=== PATIENT | female | born 1985 | race Caucasian/White ===

== ENCOUNTER → 2016-06-23 | Outpatient (CLI) | payer OTHER ==
--- NOTE | 2016-06-24 07:42 | US ---
EXAMINATION TYPE: US pelvic complete DATE OF EXAM: 06/23/2016 4:11 PM COMPARISON: 05/08/17 CLINICAL HISTORY: N83.20 Prev Rt Ovarian Cyst. TECHNIQUE: TA, patient did not want TV approach today Date of LMP: 06/15/2016 EXAM MEASUREMENTS: Uterus: 9.3 x 5.5 x 3.9cm Endometrial Stripe: 0.4cm Right Ovary: 3.5 x 2.7 x 1.8cm Left Ovary: 2.2 x 2.1 x 1.7cm Findings: 1. Uterus: wnl 2. Endometrium: wnl 3. Right Ovary: 1.2cm follicle seen 4. Left Ovary: wnl 5. Bilateral Adnexa: wnl 6. Posterior cul-de-sac: wnl IMPRESSION: 1. No acute process. No sizable ovarian cyst is seen on the right.
== END | disposition home or self-care (01) ==
LOC: RADUSWWP 16:01
PROVIDERS: ATTEND Obstetrics & Gynecology
DX: N83.201 Unspecified ovarian cyst, right side (principal)
CPT/HCPCS: 76856

== ENCOUNTER 2018-01-19 11:16 | Outpatient (CLI) | payer OTHER ==
[2018-01-19 12:01] VITALS: BP 119/76; PULSE 83; RESP 16; TEMP 97.5
--- NOTE | 2018-01-22 07:56 | P.MSEPDOC ---
Presenting Problems - Arrival Data Date of Arrival on Unit: 01/19/18 Time of Arrival on Unit: 11:16 Mode of Transport: Ambulatory Vital Signs - Temperature Temperature: 97.5 F Temperature Source: Temporal Artery Scan - Pulse Brachial Pulse Rate: 83 Pulse Assessment Method: Automatic Cuff - Respirations Respiratory Rate: 16 Oxygen Delivery Method: Room Air - Blood Pressure Right Arm Sitting Blood Pressure: 119/76 Blood Pressure Mean: 90 Blood Pressure Source: Automatic Cuff Medical Screen Scoring (Post) - Cervical Exam Dilation: Exam Deferred Effacement: Exam Deferred Membranes: Intact - Uterine Contractions Frequency: N/A Duration: N/A Intensity: N/A - Maternal Vital Signs Maternal Temperature: N/A Signs of Preeclampsia: N/A Maternal Respirations: N/A - Pain Assessment Pain Intensity: 0 - Assessment Heart Rate: 145 Heart Rate - NICHD Category: Category I (Normal) = 0 NST: Reactive Position: N/A Station: N/A - Total Score Total Score (Post): 0 - Post Treatment Level of Risk Post Treatment Level of Risk: Low (0-5) Physician Notification (Post) - Physician Notified Physician Notified Date: 01/19/18 Physician Notified Time: 11:55 Spoke With: Dr Sauer New Order Received: Yes - Notification Comment Comment: pt arrived with c/o decreased movement and swelling. pt has a reactive NST and feeling lots of movement while here. no swelling noted by RN. pt dc'd home and will f/u in office on 01/29/[address] Sauer Disposition - Disposition OB Disposition: Triage, Discharge to home, Written follow up instructions reviewed Discharge Date: 01/19/18 Discharge Time: 12:00 I agree with the RN Medical Screening Exam: Yes Risk & Benefit of care provided described in d/c instruction: Yes Diagnosis: DECREASED MOVEMENTS, THIRD TRIMESTER, FETUS 1
== END 2018-01-19 12:00 | disposition home or self-care (01) ==
LOC: FBPOP 11:16
PROVIDERS: ATTEND Obstetrics & Gynecology
DX: O36.8130 Decreased fetal movements, third trimester, not applicable or unspecified (principal); Z3A.00 Weeks of gestation of pregnancy not specified
CPT/HCPCS: 59025; 99213

== ENCOUNTER 2018-02-10 10:30 | Outpatient (CLI) | payer OTHER ==
[2018-02-10 11:15] VITALS: BP 123/82; PULSE 100; RESP 16; TEMP 98
--- NOTE | 2018-02-10 12:59 | P.MSEPDOC ---
Presenting Problems - Arrival Data Date of Arrival on Unit: 02/10/18 Time of Arrival on Unit: 10:30 Mode of Transport: Ambulatory - Complaint OB-Reason for Admission/Chief Complaint: Rule Out PROM Comment: 02/10/18 2200-"woke up damp", continues to feel "damp" today Medical History - Information : 3 Para: 2 Term: 2 : 0 Abortions: Spontaneous or Elective: 0 Number of Living Children: 2 - Gestational Age Gestational Age by PABLO (wks/days): 35 Weeks and 5 Days Review of Systems - Review of Systems Constitutional: No problems Breast: No problems ENT: No problems Cardiovascular: No problems Respiratory: No problems Gastrointestinal: No problems Genitourinary: No problems Musculoskeletal: No problems Neurological: No problems Skin: No problems Vital Signs - Temperature Temperature: 98 F Temperature Source: Oral - Pulse Right Sitting Brachial Pulse Rate: 100 Pulse Assessment Method: Automatic Cuff - Respirations Respiratory Rate: 16 Oxygen Delivery Method: Room Air - Blood Pressure Right Arm Sitting Blood Pressure: 123/82 Blood Pressure Mean: 95 Blood Pressure Source: Automatic Cuff Medical Screen Scoring (Pre) - Cervical Exam Dilation: Exam Deferred Effacement: Exam Deferred Membranes: Intact - Uterine Contractions Frequency: N/A Duration: N/A Intensity: N/A - Maternal Vital Signs Maternal Temperature: N/A Maternal Blood Pressure: N/A Signs of Preeclampsia: N/A Maternal Respirations: N/A - Maternal Trauma Maternal Trauma: N/A - Assessment Baseline FHR: 145 Heart Rate - NICHD Category: Category I (Normal) = 0 NST: Reactive Position: N/A Station: N/A - Total Score Total Score (Pre): 0 - Level of Risk Level of Risk: Low (0-5) Physician Notification (Pre) - Physician Notified Physician Notified Date: 02/10/18 Physician Notified Time: 10:50 Physician/Practitioner Notifed:: Cristiane Spoke With: Cristiane New Order Received: Yes - Notification Comment Comment: , 35 5/, amnisure negative, reactive NST, repeat c/s scheduled 03/05/18. Pt has appt tomorrow 02/11 @ 0845. Pt to be discharged home, follow up tomorrow as scheduled. Disposition - Disposition OB Disposition: Discharge to home, Written follow up instructions reviewed Discharge Date: 02/10/18 Discharge Time: 11:08 I agree with the RN Medical Screening Exam: Yes Risk & Benefit of care provided described in d/c instruction: Yes Diagnosis: FALSE LABOR AT OR AFTER 37 COMPLETED WEEKS OF GESTATION
== END 2018-02-10 11:08 | disposition home or self-care (01) ==
LOC: FBPOP 10:30
PROVIDERS: ATTEND Obstetrics & Gynecology
DX: O47.1 False labor at or after 37 completed weeks of gestation (principal); Z3A.35 35 weeks gestation of pregnancy
CPT/HCPCS: 59025; 84112; 99213

== ENCOUNTER 2018-02-22 08:14 | Outpatient (CLI) | payer OTHER ==
[2018-02-22 08:57] VITALS: BP 124/80; PULSE 99; RESP 16; TEMP 98.4
--- NOTE | 2018-02-22 12:49 | P.MSEPDOC ---
Presenting Problems - Arrival Data Date of Arrival on Unit: 02/22/18 Time of Arrival on Unit: 08:30 Mode of Transport: Ambulatory - Complaint OB-Reason for Admission/Chief Complaint: Possible Onset of Labor, Scheduled C- Section Medical History - Information : 3 Para: 2 Term: 1 : 1 Abortions: Spontaneous or Elective: 0 Number of Living Children: 0 - Gestational Age Gestational Age by PABLO (wks/days): 37 Weeks and 3 Days Review of Systems - Review of Systems Constitutional: No problems Breast: No problems ENT: No problems Cardiovascular: No problems Respiratory: No problems Gastrointestinal: No problems Genitourinary: No problems Musculoskeletal: No problems Neurological: No problems Skin: No problems Vital Signs - Temperature Temperature: 98.4 F Temperature Source: Temporal Artery Scan - Pulse Right Apical Pulse Rate: 99 Pulse Assessment Method: Automatic Cuff - Respirations Respiratory Rate: 16 Oxygen Delivery Method: Room Air O2 Sat by Pulse Oximetry: 98 - Blood Pressure Right Arm Blood Pressure: 124/80 Blood Pressure Mean: 94 Blood Pressure Source: Automatic Cuff Medical Screen Scoring (Pre) - Cervical Exam Dilation: 0 cm = 0 Effacement: Exam Deferred Membranes: Intact - Uterine Contractions Frequency: > 5 minutes apart = 1 Duration: N/A Intensity: N/A - Maternal Vital Signs Maternal Temperature: N/A Maternal Blood Pressure: N/A Signs of Preeclampsia: N/A Maternal Respirations: N/A - Pain Assessment Pain Scale Used: Numeric (1 - 10) Pain Intensity: 5 Pain Description: Cramping Pain Frequency: Intermittent Pain Aggravating Factors: Contractions, Position - Maternal Trauma Maternal Trauma: N/A - Assessment Heart Rate - NICHD Category: Category I (Normal) = 0 NST: Reactive Position: N/A Station: N/A - Total Score Total Score (Pre): 1 Physician Notification (Pre) - Physician Notified Physician Notified Date: 02/22/18 Physician Notified Time: 08:35 Physician/Practitioner Notifed:: cary Spoke With: cary New Order Received: Yes - Notification Comment Comment: assess in triage. vaginal exam and nst. may discharge home. 929. to see dr in office on thursday. return to triage if need/or conserns. Disposition - Disposition OB Disposition: Discharge to home, Written follow up instructions reviewed Discharge Date: 02/22/18 Discharge Time: 09:35 I agree with the RN Medical Screening Exam: Yes Risk & Benefit of care provided described in d/c instruction: Yes Diagnosis: FALSE LABOR AT OR AFTER 37 COMPLETED WEEKS OF GESTATION
== END 2018-02-22 09:35 | disposition home or self-care (01) ==
LOC: FBPOP 08:14
PROVIDERS: ATTEND Obstetrics & Gynecology
DX: O47.1 False labor at or after 37 completed weeks of gestation (principal); Z3A.37 37 weeks gestation of pregnancy
CPT/HCPCS: 59025; 99213

== ENCOUNTER 2018-02-24 08:40 | Inpatient (IN) | payer OTHER ==
[2018-02-24] MEDS ORDERED: CITRIC ACID-SODIUM CITRATE 15 ML CUP PO ONE (08:58)
[2018-02-24] MEDS ORDERED: LACTATED RINGERS 1,000 ML IV ONE (08:58)
[2018-02-24 09:41] LABS: Anisocytosis Slight; Basophils # (A) 0.1 k/uL (0-0.2); Basophils % (A) 1 %; Eosinophils # (A) 0.1 k/uL (0-0.7); Eosinophils % (A) 1 %; HCT 27.6 % (34.0-46.0); HGB 8.6 gm/dL (11.4-16.0); Hypochromasia Marked; Lymphocytes # (A) 1.7 k/uL (1.0-4.8); Lymphocytes % (A) 19 %; MCH 21.4 pg (25.0-35.0); MCV 68.9 fL (80.0-100.0); Mean Platelet Volume 11.8; Microcytosis Marked; Monocytes # (A) 0.5 k/uL (0-1.0); Monocytes % (A) 5 %; Neutrophils # (A) 6.6 k/uL (1.3-7.7); Neutrophils % (A) 73 %; Platelet Count 131 k/uL (150-450); Poikilocytosis Slight; RBC 4.01 m/uL (3.80-5.40); RDW 16.7 % (11.5-15.5); WBC 9.1 k/uL (3.8-10.6)
[2018-02-24 09:45] VITALS: BMI 25.2
[2018-02-24 10:02] LABS: Large Platelets Present; Polychromasia Present
[2018-02-24] MEDS: LACTATED RINGERS 1,000 ML IV SCH ×4 (11:44→23:38)
[2018-02-24] MEDS ORDERED: ceFAZolin IN SWFI 2 GM/20 ML SYRINGE IVP ONE (11:45)
--- NOTE | 2018-02-24 12:03 | P.HPOB ---
History of Present Illness H&P Date: 02/24/18 Chief Complaint: Previous section and labor This patient is a pleasant 32-year-old 3 para 2 female estimated date of confinement 03/12/2014 estimated gestational age 37-5/7 weeks' has been having contractions on and off for approximately 3-4 days. Patient was here on Thursday and was not dilated. She had strong contractions all night long and cervix is now 1 cm dilated and she is felt to be in active labor. Patient's had 2 previous sections. Patient request repeat section and also desires permanent sterilization. Patient's care otherwise has been uncomplicated. Review of Systems Constitutional: Denies chills, Denies fever Gastrointestinal: Reports heartburn Genitourinary: Reports , Denies dysuria, Denies hematuria Menstruation: Reports amenorrhea Past Medical History Past Medical History: No Reported History Additional Past Medical History / Comment(s): kidney stones History of Any Multi-Drug Resistant Organisms: None Reported Past Surgical History: Section Additional Past Surgical History / Comment(s): c/s x2 Past Anesthesia/Blood Transfusion Reactions: No Reported Reaction, Postoperative Nausea & Vomiting (PONV) Past Psychological History: No Psychological Hx Reported Smoking Status: Never smoker Past Alcohol Use History: None Reported Past Drug Use History: None Reported - Past Family History Mother Family Medical History: Cancer Medications and Allergies Home Medications Medication Instructions Recorded Confirmed Type Pnv No.95/Ferrous Fum/Folic AC 1 tab PO DAILY 01/19/18 02/24/18 History [ Multivitamin Tablet] Allergies Allergy/AdvReac Type Severity Reaction Status Date / Time No Known Allergies Allergy Verified 02/24/18 09:11 Exam Vital Signs Temp Pulse Resp BP Pulse Ox 02/24/18 09:09 98.7 F 89 16 136/82 99 Intake and Output 02/23/18 02/24/18 02/24/18 22:59 06:59 14:59 Other: Weight 75.296 kg - OBG Physical Exam Abdomen: bowel sounds normal, no diffuse tenderness, no bruit present, no guarding noted, no hepatomegaly, no splenomegaly, no mass Vulva: both: normal Vagina: normal moisture, no discharge Cervix: no lesion (Cervix is 1 cm dilated 50% effaced -2 station), no discharge Uterus: enlarged (Fundal height is consistent with a term ) Results blood work shows she is O positive, rubella immune, RPR is nonreactive , hepatitis B is negative, HIV is nonreactive, ultrasounds have been normal, Glucola was abnormal with a normal three-hour gtt., group B strep was negative. Result Diagrams: 02/24/18 09:31 Abnormal Lab Results - Last 24 Hours (Table) 02/24/18 Range/Units 09:31 Hgb 8.6 L (11.4-16.0) gm/dL Hct 27.6 L (34.0-46.0) % MCV 68.9 L (80.0-100.0) fL MCH 21.4 L (25.0-35.0) pg RDW 16.7 H (11.5-15.5) % Plt Count 131 L (150-450) k/uL Assessment and Plan Assessment: This is a pleasant 32-year-old 3 para 2 female 37-5/7 weeks' gestation with previous section 2 and early labor. Plan is repeat section and also requesting permanent sterilization. Patient I have discussed the surgery in detail including the risks of infection, bleeding, possible bowel , bladder, vessels, and other organs. All the patient's questions have been answered and a written consent is obtained. Patient does understand a tubal ligation is permanent, however there is a failure rate of approximately 5 or less per thousand procedures done. (1) Third trimester Current Visit: Yes Status: Acute Code(s): Z34.93 - ENCNTR FOR SUPRVSN OF NORMAL PREG, UNSP, THIRD TRIMESTER SNOMED Code(s): 71113152 (2) Normal labor Current Visit: Yes Status: Acute Code(s): O80 - ENCOUNTER FOR FULL-TERM UNCOMPLICATED DELIVERY; Z37.9 - OUTCOME OF DELIVERY, UNSPECIFIED SNOMED Code(s ): 03821068 (3) Previous delivery affecting Current Visit: Yes Status: Acute Code(s): O34.219 - MATERNAL CARE FOR UNSP TYPE SCAR FROM PREVIOUS DEL SNOMED Code(s): 774194879 (4) Family planning Current Visit: Yes Status: Acute Code(s): Z30.09 - ENCOUNTER FOR OTH GENERAL CNSL AND ADVICE ON CONTRACEPTION SNOMED Code(s): 336117647
[2018-02-24] MEDS ORDERED: OXYTOCIN 10 UNIT/ML 1 ML VIAL ONE (12:15)
[2018-02-24] MEDS ORDERED: ONDANSETRON 4 MG/2 ML VIAL ONE (12:15)
[2018-02-24] MEDS ORDERED: ePHEDrine SULFATE/0.9% NACL/PF 50 MG/5 ML SYRINGE IV ONE (12:15)
[2018-02-24] MEDS ORDERED: DEXAMETHASONE SOD PHOS (MDV) 100 MG/10 ML VIAL ONE (12:15)
[2018-02-24] MEDS ORDERED: MORPHINE SULFATE (PF) 0.3 MG/0.3 ML SYR ONE (12:15)
[2018-02-24] MEDS ORDERED: HYDROmorphone 1 MG/ML 1 ML SYRINGE IVP PRN (12:56)
[2018-02-24] MEDS ORDERED: NALBUPHINE 10 MG/ML VIAL (10ML MDV) IV PRN (12:56)
[2018-02-24] MEDS ORDERED: ONDANSETRON 4 MG/2 ML VIAL IVP PRN ×2 (12:56→12:58)
[2018-02-24] MEDS ORDERED: diphenhydrAMINE 50 MG/ML 1 ML VIAL IVP PRN (12:56)
[2018-02-24] MEDS ORDERED: NALOXONE 0.4 MG/ML 1 ML VIAL IV PRN ×2 (12:56→12:58)
[2018-02-24] MEDS ORDERED: SIMETHICONE 80 MG CHEWABLE PO PRN (12:58)
[2018-02-24] MEDS ORDERED: diphenhydrAMINE 25 MG CAP PO PRN (12:58)
[2018-02-24] MEDS ORDERED: ZOLPIDEM 5 MG TAB PO PRN (12:58)
[2018-02-24] MEDS ORDERED: METOCLOPRAMIDE 5 MG/ML 2 ML VIAL IVP PRN (12:58)
[2018-02-24] MEDS ORDERED: OXYTOCIN 20 UNITS/1000 ML NS 1,000 ML IV SCH (13:00)
--- NOTE | 2018-02-24 13:09 | P.OP ---
Date of Procedure: 02/24/18 Preoperative Diagnosis: #1: 37-5/7 weeks . #2: Early labor #3: Previous section 2. #4: Multi parity desires permanent sterilization Postoperative Diagnosis: Same Procedure(s) Performed: Repeat low transverse section and bilateral partial salpingectomy Anesthesia: spinal Surgeon: Chito Sauer Residential Advisor #1: Moraima Galan Estimated Blood Loss (ml): 600 Pathology: other (Bilateral fallopian tube segments) Condition: stable Disposition: floor Indications for Procedure: Please see dictated H&P for intimate details of this patient's admission. Brief summary this pleasant 32-year-old 3 para 2 female 37-5/7 weeks' gestation is been having contractions strong all night long presented to my office since has cervical change consistent with labor. Patient is a previous section 2 request repeat and also permanent sterilization. All the patient's questions been answered and a written consent is obtained. Operative Findings: This is a vigorous viable male Apgars 8 and 9 delivery time is 1234 hrs. Nuchal cord 1 which was loose. Patient normal uterus tubes and ovaries Description of Procedure: This patient has a Sanchez catheter placed to straight drain. She is subsequently taken to the operating room where she sat up and spinal anesthetic is administered without incident. With an adequate level of anesthesia she has abdominal prep and drape. Scalpels then taken. Patient is 2 previous Pfannenstiel incisions and I make an incision in the upper incision. A second scalpel is taken down the fascia the fascia scored with a knife. Fascial incision extended bilaterally using the Landa scissors. Fascia is then dissected sharply off the rectus muscles. Peritoneum was entered sharply at that time. Peritoneal incision extended superior and inferior without difficulty. Bladder blade is then placed. Bladder peritoneum was taken sharply off the lower uterine segment. Scalpels taken low transverse uterine incision is then made. Using a hemostat I into the uterine cavity bluntly and there is loss of clear fluid. This incision is then extended bluntly. ' s head is then guided through the incision with fundal pressure delivered. Mouth and nares are bulb suctioned. There is a loose nuchal cord which is reduced. We then have deliver the anterior and posterior shoulder and rest this infant's body. This is a vigorous viable male Apgars are 8 and 9 delivery time was 1234 hrs. After delivery of the infant the umbilical cord is doubly clamped and cut. is handed off to the nurses in attendance. Cord blood is obtained. Placenta is then manually extracted intact. Uterus is then externalized and the uterine incision demarcated with Hansen clamps. Uterine incision closed in a running locked fashion of 0 Vicryl suture. Excellent hemostasis is noted. Then turned my attention to the fallopian tubes and the left fallopian tube was identified and approximately 4 cm from its cornual insertion a small window made to the mesial salpinx with Bovie cautery. Using a 2-0 silk suture I doubly ligate a 2 cm segment of fallopian tube this is then excised and the tubal ostia are cauterized. Similarly on the right side the right fallopian tube is transected and ligated. This completed excess fluid is removed from the abdomen and pelvis. Uterus placed back into the abdomen. The peritoneum was then identified and closed using 0 Vicryl running fashion. Rectus muscles are reapproximated in 0 Vicryl interrupted fashion. The fascia is then closed using a 0 PDS. Fascial incision is intact and hemostatic. Subcutaneous tissue is then reapproximated using a 3-0 Vicryl. Skin is and closed using carmelo. Sterile dressing is applied. All counts correct 3. There are no complications. and mother taken to the birthing suite in satisfactory condition.
[2018-02-24] MEDS: KETOROLAC 30 MG/ML 1 ML VIAL IVP PRN ×2 (16:48→23:37)
[2018-02-24] MEDS: SENNOSIDES-DOCUSATE SODIUM 1 EACH TAB PO SCH (21:43)
[2018-02-25] MEDS: LACTATED RINGERS 1,000 ML IV SCH ×5 (01:38→21:10)
--- NOTE | 2018-02-25 06:10 | P.PNOBGPC ---
Subjective - Subjective Patient reports: Reports appetite normal, Reports voiding normally, Reports pain well controlled, Reports ambulating normally : doing well Objective - Vital Signs Latest vital signs: Vital Signs Temp Pulse Resp BP Pulse Ox 02/25/18 04:00 97.9 F 64 17 119/69 100 02/25/18 02:42 17 02/25/18 00:00 98.2 F 82 18 125/74 100 02/24/18 20:30 98.0 F 68 17 129/75 97 02/24/18 18:44 18 02/24/18 17:00 18 02/24/18 16:00 97.7 F 71 18 139/68 98 02/24/18 15:56 18 02/24/18 15:15 97.6 F 73 16 118/62 98 02/24/18 14:45 83 16 121/63 98 02/24/18 14:15 71 16 124/70 02/24/18 13:55 74 16 110/71 98 02/24/18 13:53 16 02/24/18 13:45 76 16 114/63 98 02/24/18 13:26 78 16 113/58 99 02/24/18 13:15 98.2 F 78 16 112/54 99 02/24/18 12:56 18 99 02/24/18 09:09 98.7 F 89 16 136/82 99 Intake and Output 02/24/18 02/24/18 02/25/18 14:59 22:59 06:59 Intake Total 2000 Output Total 950 900 300 Balance 1050 -900 -300 Intake: IV 2000 Output: Urine 350 900 300 Uretheral (Sanchez) 300 Emesis 0 Estimated Blood Loss 600 Other: # Emeses 1 Weight 75.296 kg - Exam Lungs: bilateral: normal Chest: Normal S1, Normal S2 Extremities: Present: normal Abdomen: Present: normal appearance, soft. Absent: distention, tenderness Incision: Present: normal, dry, intact Uterus: Present: normal, firm - Labs Labs: Abnormal Lab Results - Last 24 Hours (Table) 02/24/18 Range/Units 09:31 Hgb 8.6 L (11.4-16.0) gm/dL Hct 27.6 L (34.0-46.0) % MCV 68.9 L (80.0-100.0) fL MCH 21.4 L (25.0-35.0) pg RDW 16.7 H (11.5-15.5) % Plt Count 131 L (150-450) k/uL Assessment and Plan Assessment: Post operative day #1. Patient is resting without complaints. Vital signs are stable she is afebrile. Her incision is intact and dry. Patient still having some nausea and therefore hasn't taken much oral intake. Plan today is to advance her diet, encourage ambulation, allow the patient to shower, check a CBC. (1) Third trimester Current Visit: Yes Status: Acute Code(s): Z34.93 - ENCNTR FOR SUPRVSN OF NORMAL PREG, UNSP, THIRD TRIMESTER SNOMED Code(s): 15900532 (2) Normal labor Current Visit: Yes Status: Acute Code(s): O80 - ENCOUNTER FOR FULL-TERM UNCOMPLICATED DELIVERY; Z37.9 - OUTCOME OF DELIVERY, UNSPECIFIED SNOMED Code(s ): 61299724 (3) Previous delivery affecting Current Visit: Yes Status: Acute Code(s): O34.219 - MATERNAL CARE FOR UNSP TYPE SCAR FROM PREVIOUS DEL SNOMED Code(s): 084026890 (4) Family planning Current Visit: Yes Status: Acute Code(s): Z30.09 - ENCOUNTER FOR OTH GENERAL CNSL AND ADVICE ON CONTRACEPTION SNOMED Code(s): 703982792
[2018-02-25 07:41] LABS: Anisocytosis Slight; Basophils % (A) 0 %; Eosinophils % (A) 0 %; HCT 26.7 % (34.0-46.0); HGB 8.1 gm/dL (11.4-16.0); Hypochromasia Marked; Lymphocytes # (A) 1.4 k/uL (1.0-4.8); Lymphocytes % (A) 9 %; MCH 21.7 pg (25.0-35.0); MCHC 30.5 g/dL (31.0-37.0); Mean Platelet Volume 10.9; Microcytosis Moderate; Monocytes # (A) 0.9 k/uL (0-1.0); Monocytes % (A) 5 %; Neutrophils # (A) 13.3 k/uL (1.3-7.7); Neutrophils % (A) 85 %; Platelet Count 128 k/uL (150-450); Poikilocytosis Slight; RBC 3.76 m/uL (3.80-5.40); RDW 16.6 % (11.5-15.5); WBC 15.7 k/uL (3.8-10.6)
[2018-02-25 09:20] LABS: Polychromasia Present
[2018-02-25] MEDS: SENNOSIDES-DOCUSATE SODIUM 1 EACH TAB PO SCH ×2 (09:38→20:25)
[2018-02-25] MEDS: KETOROLAC 30 MG/ML 1 ML VIAL IVP PRN ×2 (09:39→17:28)
--- NOTE | 2018-02-25 17:04 | P.PN ---
Progress Note - Text Progress Note Date: 02/25/18 Postoperative day 1 status post section under spinal anesthesia, and intrathecal morphine given for postoperative analgesia, patient doing well, there is no anesthesia related complications, Patient had no headache, vital signs stable , Assessment and plan= postop day 1 status post , doing well there is no anesthesia related complication.
[2018-02-25] MEDS: ACETAMINOPHEN TAB 325 MG TAB PO PRN (20:25)
[2018-02-25] MEDS ORDERED: Acetaminophen-Codeine 300-30mg TAB PO PRN (21:07)
[2018-02-26] MEDS: IBUPROFEN 600 MG TAB PO PRN ×4 (00:42→19:40)
[2018-02-26] MEDS: ACETAMINOPHEN TAB 325 MG TAB PO PRN ×4 (03:41→22:01)
[2018-02-26] MEDS: LACTATED RINGERS 1,000 ML IV SCH ×2 (05:12→05:14)
--- NOTE | 2018-02-26 05:54 | P.PNOBGPC ---
Subjective - Subjective Patient reports: Reports appetite normal, Reports voiding normally, Reports pain well controlled, Reports ambulating normally : doing well Objective - Vital Signs Latest vital signs: Vital Signs Temp Pulse Resp BP Pulse Ox 02/26/18 00:00 98.4 F 75 50 H 109/61 02/25/18 16:00 98.4 F 60 18 104/50 99 02/25/18 12:00 98.2 F 77 18 126/67 100 02/25/18 08:00 98.0 F 68 18 129/69 100 Intake and Output 02/25/18 02/25/18 02/26/18 14:59 22:59 06:59 Output Total 800 Balance -800 Output: Urine 800 Other: # Voids 1 - Exam Lungs: bilateral: normal Chest: Normal S1, Normal S2 Extremities: Present: normal Abdomen: Present: normal appearance, soft. Absent: distention, tenderness Incision: Present: normal, dry, intact Uterus: Present: normal, firm - Labs Labs: Abnormal Lab Results - Last 24 Hours (Table) 02/25/18 Range/Units 07:00 WBC 15.7 H (3.8-10.6) k/uL RBC 3.76 L (3.80-5.40) m/uL Hgb 8.1 L (11.4-16.0) gm/dL Hct 26.7 L (34.0-46.0) % MCV 71.0 L (80.0-100.0) fL MCH 21.7 L (25.0-35.0) pg MCHC 30.5 L (31.0-37.0) g/dL RDW 16.6 H (11.5-15.5) % Plt Count 128 L (150-450) k/uL Neutrophils # 13.3 H (1.3-7.7) k/uL Assessment and Plan Assessment: Post operative day #2. She is resting without new complaints. Vital signs are stable she is afebrile. Uterus is firm nontender and her incision is intact and dry. Patient's preoperative hemoglobin was 8.6 and yesterday was 8.1 which is consistent with chronic anemia. I am going to start her on some iron now that she's tolerating regular diet. My impression this is a normal course. Plan is to continue postoperative care discharge home tomorrow. (1) Third trimester Current Visit: Yes Status: Acute Code(s): Z34.93 - ENCNTR FOR SUPRVSN OF NORMAL PREG, UNSP, THIRD TRIMESTER SNOMED Code(s): 67799272 (2) Normal labor Current Visit: Yes Status: Acute Code(s): O80 - ENCOUNTER FOR FULL-TERM UNCOMPLICATED DELIVERY; Z37.9 - OUTCOME OF DELIVERY, UNSPECIFIED SNOMED Code(s ): 07744163 (3) Previous delivery affecting Current Visit: Yes Status: Acute Code(s): O34.219 - MATERNAL CARE FOR UNSP TYPE SCAR FROM PREVIOUS DEL SNOMED Code(s): 734821291 (4) Family planning Current Visit: Yes Status: Acute Code(s): Z30.09 - ENCOUNTER FOR OTH GENERAL CNSL AND ADVICE ON CONTRACEPTION SNOMED Code(s): 836499383 (5) Chronic anemia Current Visit: Yes Status: Acute Code(s): D64.9 - ANEMIA, UNSPECIFIED SNOMED Code(s): 251285817
[2018-02-26] MEDS: IRON AG/C/B12/CA/SUC.ACID/STOM 1 EACH TAB PO SCH (07:51)
[2018-02-26] MEDS: SENNOSIDES-DOCUSATE SODIUM 1 EACH TAB PO SCH ×2 (07:51→21:47)
[2018-02-26 16:52] VITALS: RESP 18
[2018-02-27] MEDS: IBUPROFEN 600 MG TAB PO PRN ×2 (01:39→07:27)
[2018-02-27] MEDS: ACETAMINOPHEN TAB 325 MG TAB PO PRN (04:46)
--- NOTE | 2018-02-27 06:30 | P.PNOBGPC ---
Subjective - Subjective Patient reports: Reports appetite normal, Reports voiding normally, Reports pain well controlled, Reports ambulating normally : doing well Objective - Vital Signs Latest vital signs: Vital Signs Temp Pulse Resp BP Pulse Ox 02/27/18 04:00 98.0 F 73 18 130/72 02/27/18 00:00 98.6 F 80 18 125/66 02/26/18 20:00 98.4 F 80 18 125/77 02/26/18 16:00 98.5 F 88 18 124/76 99 02/26/18 08:00 98.7 F 65 17 111/69 96 Intake and Output 02/26/18 02/26/18 02/27/18 14:59 22:59 06:59 Other: # Voids 2 - Exam Lungs: bilateral: normal Chest: Normal S1, Normal S2 Extremities: Present: normal Abdomen: Present: normal appearance, soft. Absent: distention, tenderness Incision: Present: normal, dry, intact Uterus: Present: normal, firm Assessment and Plan Assessment: Postoperative day #3. Patient is resting without complaints. Vital signs are stable she is afebrile. Uterus is firm nontender her incision is intact and dry. My impression is a normal course. Plan is to discharge home later today follow up with me in 1 week. (1) Third trimester Current Visit: Yes Status: Acute Code(s): Z34.93 - ENCNTR FOR SUPRVSN OF NORMAL PREG, UNSP, THIRD TRIMESTER SNOMED Code(s): 35939022 (2) Normal labor Current Visit: Yes Status: Acute Code(s): O80 - ENCOUNTER FOR FULL-TERM UNCOMPLICATED DELIVERY; Z37.9 - OUTCOME OF DELIVERY, UNSPECIFIED SNOMED Code(s ): 45872509 (3) Previous delivery affecting Current Visit: Yes Status: Acute Code(s): O34.219 - MATERNAL CARE FOR UNSP TYPE SCAR FROM PREVIOUS DEL SNOMED Code(s): 436656381 (4) Family planning Current Visit: Yes Status: Acute Code(s): Z30.09 - ENCOUNTER FOR OTH GENERAL CNSL AND ADVICE ON CONTRACEPTION SNOMED Code(s): 164794468 (5) Chronic anemia Current Visit: Yes Status: Acute Code(s): D64.9 - ANEMIA, UNSPECIFIED SNOMED Code(s): 069568080
--- NOTE | 2018-02-27 06:37 | P.DS ---
Providers Date of admission: 02/24/18 08:40 Expected date of discharge: 02/27/18 Attending physician: Cihto Sauer Primary care physician: Chito Sauer - Discharge Diagnosis(es) (1) Third trimester Current Visit: Yes Status: Acute (2) Normal labor Current Visit: Yes Status: Acute (3) Previous delivery affecting Current Visit: Yes Status: Acute (4) Family planning Current Visit: Yes Status: Acute (5) Chronic anemia Current Visit: Yes Status: Acute Hospital Course: Please see dictated H&P for intimate details of this patient's admission. Brief summary is a pleasant 32-year-old 3 para 2 female admitted to labor and delivery in active labor. Patient underwent her repeat section and tubal ligation. Please see dictated operative note. Postoperative patient does well and on postoperative 3 she felt be stable for discharge home. Of note patient did have some chronic anemia she was placed on iron therapy which she'll continue at home. Procedures: Repeat low transverse section and bilateral partial salpingectomy. Patient Condition at Discharge: Good Plan - Discharge Summary New Discharge Prescriptions: New Acetaminophen-Codeine 300-30mg [Tylenol w/codeine #3] 2 each PO Q4HR PRN #36 tab PRN Reason: Moderate Pain Ibuprofen [Motrin] 600 mg PO Q6HR PRN #40 tab PRN Reason: Mild Pain Or Fever >= 100.5 Iron Ag/C/B12/Ca/Suc.acid/Stom [Chromagen LF] 1 each PO DAILY #30 tab No Action Pnv No.95/Ferrous Fum/Folic AC [ Multivitamin Tablet] 1 tab PO DAILY Discharge Medication List Pnv No.95/Ferrous Fum/Folic AC [ Multivitamin Tablet] 1 tab PO DAILY [History] Acetaminophen-Codeine 300-30mg [Tylenol w/codeine #3] 2 each PO Q4HR PRN #36 tab 02/27/18 [Rx] Ibuprofen [Motrin] 600 mg PO Q6HR PRN #40 tab 02/27/18 [Rx] Iron Ag/C/B12/Ca/Suc.acid/Stom [Chromagen LF] 1 each PO DAILY #30 tab 02/27/18 [ Rx] Follow up Appointment(s)/Referral(s): Chito Sauer MD [Primary Care Provider] - 03/03/18 1:30 pm (Irene also has a visit on April 08 at 2:30 PM.) Patient Instructions/Handouts: (DC) Activity/Diet/Wound Care/Special Instructions: No strenuous activity or heavy lifting for 6 weeks. No intercourse or anything per vagina for 6 weeks. Please call if any fever, chills, excessive vaginal bleeding, and/or abdominal pain. Discharge Disposition: HOME SELF-CARE
[2018-02-27 07:57] VITALS: BP 113/74; PULSE 83; TEMP 97.6
[2018-02-27] MEDS: SENNOSIDES-DOCUSATE SODIUM 1 EACH TAB PO SCH (07:58)
[2018-02-27] MEDS: IRON AG/C/B12/CA/SUC.ACID/STOM 1 EACH TAB PO SCH (08:23)
== END 2018-02-27 09:50 | disposition home or self-care (01) | DRG 766 ==
LOC: 4FBP 08:40
PROVIDERS: ADMIT Obstetrics & Gynecology; ATTEND Obstetrics & Gynecology
PROC: 0UB70ZZ Excision of Bilateral Fallopian Tubes, Open Approach (ICD-10-PCS; 2018-02-24)
PROC: 10D00Z1 Extraction of Products of Conception, Low, Open Approach (ICD-10-PCS; principal; 2018-02-24 12:00)
DX: O75.82 Onset (spontaneous) of labor after 37 completed weeks of gestation but before 39 completed weeks gestation, with delivery by (planned) cesarean section (principal); O34.211 Maternal care for low transverse scar from previous cesarean delivery; O69.81X0 Labor and delivery complicated by cord around neck, without compression, not applicable or unspecified; O99.02 Anemia complicating childbirth; D64.9 Anemia, unspecified; N85.8 Other specified noninflammatory disorders of uterus; Z3A.37 37 weeks gestation of pregnancy; Z37.0 Single live birth; Z30.2 Encounter for sterilization; Z87.442 Personal history of urinary calculi; Z79.899 Other long term (current) drug therapy; Z80.9 Family history of malignant neoplasm, unspecified
CPT/HCPCS: 85025; 86850; 86900; 86901; 88302

== ENCOUNTER → 2018-08-30 | Outpatient (CLI) | payer OTHER ==
--- NOTE | 2018-08-30 14:25 | XR ---
Abdomen HISTORY: Renal colic Frontal view the abdomen submitted on [address] scan 03/31/2017 Overlying bowel gas may obscure detail. There is retained fecal debris present. Lung bases are clear. No evident pneumoperitoneum or bowel obstruction. Bone mineralization is maintained. Partial sacrali zation of L5 is noted. IMPRESSION: Correlate for fecal stasis.
== END | disposition home or self-care (01) ==
LOC: RADXRMAIN 13:39
PROVIDERS: ATTEND Urology
DX: N23 Unspecified renal colic (principal)
CPT/HCPCS: 74018

== ENCOUNTER → 2019-12-02 | Outpatient (CLI) | payer OTHER ==
[2019-12-02 09:42] LABS: HCT 33.3 % (34.0-46.0); HGB 9.8 gm/dL (11.4-16.0); Hypochromasia Marked; MCH 21.3 pg (25.0-35.0); MCHC 29.4 g/dL (31.0-37.0); MCV 72.3 fL (80.0-100.0); Mean Platelet Volume 7.9; Microcytosis Moderate; Platelet Count 140 k/uL (150-450); RDW 15.5 % (11.5-15.5); WBC 7.4 k/uL (3.8-10.6)
[2019-12-02 10:05] LABS: T4, Free (Free Thyroxine) 0.81 ng/dL (0.78-2.19)
--- NOTE | 2019-12-02 10:27 | US ---
EXAMINATION TYPE: US transvaginal DATE OF EXAM: 12/02/2019 COMPARISON: US, CT CLINICAL HISTORY: N92.0 Excessive and frequent menstruation with reg; heavy menses low hemoglobin per patient and patient considering endometrial ablation;; C section x 3; tubal ligation TECHNIQUE: Transvaginal (TV). Transvaginal sonographic images were acquired per order Date of LMP: 11/15/2019 EXAM MEASUREMENTS: Uterus: 8.5 x 6.2 x 3.8 cm Endometrial Stripe: 1.3 cm Right Ovary: 3.3 x 2.5 x 3.2 cm Left Ovary: 3.0 x 3.0 x 1.8 cm 1. Uterus: Anteverted; C section scar is noted in JAC; multiple small Nabothian Cysts are seen in ce rvix; small amount of fluid noted in cervical canal = 1.7 x 0.5 x 0.2cm. 2. Endometrium: arcuate appearance to upper endometrium; 3. Right Ovary: multiple follicles with largest as possible involuting cyst = 2.5 x 2.0 x 1.5cm 4. Left Ovary: multiple small follicles seen with largest measured as cluster = 1.1 x 1.2 x 1.3cm 5. Bilateral Adnexa: wnl 6. Posterior cul-de-sac: wnl Grayscale, color Doppler imaging performed of the ovaries IMPRESSION: Small amount of fluid within the endocervical canal, postop change, ovarian cysts
[2019-12-02 17:12] LABS: % Iron Saturation 4.41 (12.00-45.00)
== END | disposition home or self-care (01) ==
LOC: RADUSWWP 08:31
PROVIDERS: ATTEND Obstetrics & Gynecology
DX: N83.209 Unspecified ovarian cyst, unspecified side (principal); Z13.29 Encounter for screening for other suspected endocrine disorder
CPT/HCPCS: 36415; 76830; 83540; 83550; 84439; 84443; 84479; 85027

== ENCOUNTER → 2020-01-06 | Day surgery (SDC) | payer OTHER ==
[2019-12-30 15:49] VITALS: BMI 22.8
--- NOTE | 2020-01-05 13:20 | P.HPOB ---
History of Present Illness H&P Date: 01/05/20 Chief Complaint: Menorrhagia, secondary anemia This patient is a pleasant 34 yr female who presents for endometrial ablation secondary to menorrhagia and secondary anemia. Bernie has had heavy regular menstrual cycles. She has had this for a long time period and is also being treated for iron deficient anemia. Evaluation has included a pelvic ultrasound which shows no significant abnormalities. Review of Systems Genitourinary: Reports as per HPI Menstruation: Reports period heavy Past Medical History Additional Past Medical History / Comment(s): kidney stones; anemia (iron def) History of Any Multi-Drug Resistant Organisms: None Reported Past Surgical History: Section, Tubal Ligation Additional Past Surgical History / Comment(s): c/s x3 Past Anesthesia/Blood Transfusion Reactions: Motion Sickness, Postoperative Nausea & Vomiting (PONV) Past Psychological History: No Psychological Hx Reported Smoking Status: Never smoker Past Alcohol Use History: None Reported Past Drug Use History: None Reported - Past Family History Mother Family Medical History: Cancer Sister(s) Additional Family Medical History / Comment(s): sister and her son has crohns Medications and Allergies Home Medications Medication Instructions Recorded Confirmed Type No Known Home Medications 12/30/19 12/30/19 History Allergies Allergy/AdvReac Type Severity Reaction Status Date / Time No Known Allergies Allergy Verified 12/30/19 15:41 Exam - OBG Physical Exam Abdomen: bowel sounds normal, no diffuse tenderness, no bruit present, no guarding noted, no hepatomegaly, no splenomegaly, no mass Vulva: both: normal Vagina: normal moisture, no discharge Cervix: no lesion, no discharge Uterus: normal size, normal contour Results Transvaginal ultrasound on 12/01 was unremarkable. Assessment and Plan Assessment: This is a pleasant 34 year old female with menorrhagia and chronic anemia requesting endometrial ablation. Plan is hysteroscopy, D&C and Novasure endometrial ablation. She and I have discussed this surgery and risks: infection, bleeding, possible uterine perforation and / or thermal injury. All of her questions were answered and a written consent obtained. (1) Menorrhagia Status: Chronic Code(s): N92.0 - EXCESSIVE AND FREQUENT MENSTRUATION WITH REGULAR CYCLE SNOMED Code(s): 442363248 (2) Chronic anemia Status: Chronic Code(s): D64.9 - ANEMIA, UNSPECIFIED SNOMED Code(s): 531850513
[~2020-01-06] MED LIST: DEXAMETHASONE SOD PHOSPHATE 10 MG/ML 1 ML VIAL IV ONE; HYDROmorphone 0.5 MG/0.5 ML SYRINGE IVP PRN; KETOROLAC 30 MG/ML 1 ML VIAL ONE; LACTATED RINGERS 1,000 ML IV ONE; LACTATED RINGERS 1,000 ML IV SCH; LIDOCAINE 1% (10MG/ML) FOR IV START INTRADERMA PRN; LIDOCAINE 1% INJ 10MG/ML (20 ML MDV) ONE; MIDAZOLAM 2 MG/2 ML VIAL IV PRN; MIDAZOLAM 2 MG/2 ML VIAL ONE; ONDANSETRON 4 MG/2 ML VIAL IVP ONE; ONDANSETRON 4 MG/2 ML VIAL ONE; PROPOFOL 10 MG/ML 20 ML VIAL IV ONE; Pre Op ABX Message 1 EACH MISC MISCELLANE ONE; SCOPOLAMINE 1.5MG/72HR PATCH TRANSDERM ONE; fentaNYL (PF) 50 MCG/ML 2 ML AMP ONE
--- NOTE | 2020-01-06 07:35 | P.OP ---
Date of Procedure: 01/06/20 Preoperative Diagnosis: Menorrhagia Postoperative Diagnosis: Same Procedure(s) Performed: #1: Hysteroscopy. #2: Dilation and curettage. #3: NovaSure endometrial ablation. Anesthesia: other (LMA) Surgeon: Chito Sauer Estimated Blood Loss (ml): 10 Urine output (ml): 10 Pathology: other (Uterine curettings) Condition: stable Disposition: PACU Indications for Procedure: Please see dictated H&P for intimate details of this patient's admission. Brief summary this pleasant 34-year-old 3 para 3 female long-standing menorrhagia requesting NovaSure endometrial ablation. Patient understands this procedure and risks: Risks of infection, bleeding, possible uterine perforation, and/or thermal injury. All the patient's questions are answered and a written consent is obtained. Operative Findings: This patient normal. Endometrial cavity Description of Procedure: This patient is taken to the operating room where she is laid in the supine position. She subsequently undergoes general anesthesia without incident. With an adequate level of anesthesia she's placed in dorsal lithotomy position. She has a vaginal perineal prep and drape. Examination under anesthesia shows a mid position uterus of normal size. I drain her bladder at this time for 10 mL of clear urine. Weighted speculum placed in posterior vagina. Anterior lip of the cervix and grabbed with an Allis clamp. Uterus is sounded to 9 cm. Gentle dilation is then done of the endocervix to allow the hysteroscope easily and the uterine cavity. Using saline solution hysteroscopy is performed and the uterine cavity appears normal without evidence of gross polyps fibroids or defects. Hysteroscope was then removed. Cervix is dilated more to allow a small curette easily and the uterine cavity. A gentle but thorough 4 quadrant curettage is done for adequate sampling. This completed the NovaSure device is then opened it appears to be intact. Set at a length of 6.0 cm and seated in place and opens up to a width of 4.7 cm. After passing the cavity integrity test, the NovaSure device is then enabled at 155 W setting for 86 seconds. This done the NovaSure device is then removed it appears to be intact. Hysteroscopy is then performed uterine cavity appears to be ablated up to the endocervix. Excellent results are noted. With this completed the procedure is ended the weighted speculum and Allis clamp are removed. All counts are correct 3. There are no complications. Patient is awakened from anesthesia and taken recovery room satisfactory condition.
[2020-01-06 07:39] VITALS: TEMP 97.2
[2020-01-06 07:48] VITALS: RESP 16
[2020-01-06 09:24] VITALS: BP 115/70; PULSE 75
== END | disposition home or self-care (01) ==
LOC: OR 05:57
PROVIDERS: ATTEND Obstetrics & Gynecology
DX: N92.0 Excessive and frequent menstruation with regular cycle (principal); R89.7 Abnormal histological findings in specimens from other organs, systems and tissues; D50.0 Iron deficiency anemia secondary to blood loss (chronic); Z87.442 Personal history of urinary calculi; Z98.890 Other specified postprocedural states; Z98.51 Tubal ligation status; Z91.89 Other specified personal risk factors, not elsewhere classified; Z87.898 Personal history of other specified conditions; Z80.9 Family history of malignant neoplasm, unspecified; Z83.79 Family history of other diseases of the digestive system
CPT/HCPCS: 81025; 88305; 58563; J2250; J1100; J2405; J2001; J3010; J1885; J2704; J1170

== ENCOUNTER → 2020-04-02 | Outpatient (CLI) | payer OTHER ==
--- NOTE | 2020-04-03 08:45 | XR ---
EXAMINATION TYPE: XR KUB DATE OF EXAM: 04/02/2020 4:17 PM CLINICAL HISTORY: Right lower quadrant pain. History of kidney stone. TECHNIQUE: Supine images of the abdomen and pelvis were obtained COMPARISON: Abdominal radiograph 08/30/2018. FINDINGS: Paucity of small bowel gas. Gas and fecal material is seen in non-distended colon. There is no visceromegaly or abnormal calcification appreciated. Partial sacralization of L5. IMPRESSION: Nonspecific bowel gas pattern.
== END | disposition home or self-care (01) ==
LOC: RAD 15:49
PROVIDERS: ATTEND Urology
DX: R14.0 Abdominal distension (gaseous) (principal)
CPT/HCPCS: 74018

== ENCOUNTER → 2020-06-15 | Outpatient (CLI) | payer OTHER ==
--- NOTE | 2020-06-15 11:45 | MM ---
Reason for exam: screening (asymptomatic). Baseline mammogram. History: Family history of breast cancer in mother at age 46. Took hormonal contraceptives for 1 year beginning at age 20. Physical Findings: Nurse did not find any significant physical abnormalities on exam. MG 3D Screening Mammo W/Cad Bilateral CC and MLO view(s) were taken. CV view(s) were taken of the left breast. The breast tissue is heterogeneously dense. This may lower the sensitivity of mammography. There are benign appearing round grouped calcifications in the right breast. There is no discrete abnormality. These results were verbally communicated with the patient and result sheet given to the patient on 06/15/20. ASSESSMENT: Benign, BI-RAD 2 RECOMMENDATION: Routine screening mammogram of both breasts at age 38.
== END | disposition home or self-care (01) ==
LOC: RADMAMWWP 10:26
PROVIDERS: ATTEND Obstetrics & Gynecology
DX: Z12.31 Encounter for screening mammogram for malignant neoplasm of breast (principal); Z80.3 Family history of malignant neoplasm of breast
CPT/HCPCS: 77063; 77067

== ENCOUNTER → 2024-02-15 | Outpatient (CLI) | payer OTHER ==
--- NOTE | 2024-02-18 11:02 | MM ---
Reason for Exam: Screening (asymptomatic). Last mammogram was performed 3 year(s) and 8 month(s) ago. Patient History: Menarche at age 12. First Full-Term at age 22. Hormonal Contraceptives for 1 year from age 20 until age 21. Mother had breast cancer, age 46. Risk Values: Michelle 5 year model risk: 1.0%. NCI Lifetime model risk: 16.9%. Prior Study Comparison: 06/15/2020 Bilateral Screening Mammogram, [facility]. Tissue Density: The breasts are heterogeneously dense, which may obscure small masses. Findings: Analyzed By CAD. Right breast: There is no suspicious group of microcalcifications or new suspicious mass. Left breast: There is no suspicious group of microcalcifications or new suspicious mass. Overall Assessment: Negative, BI-RAD 1 Management: Screening Mammogram of both breasts in [address] [facility] will attempt to contact patient to return for supplemental views and ultrasound if indicated. Patient should continue monthly self-breast exams. A clinical breast exam by your physician is recommended on an annual basis. This exam should not preclude additional follow-up of suspicious palpable abnormalities. Note on Michelle scores and lifetime risk: 1. A Michelle score greater than 3% is considered moderate risk. If this is the case, consider specialist referral to assess eligibility for a risk reducing agent. 2. If overall lifetime risk for the development of breast cancer is 20% or higher, the patient may qualify for future screening with alternating mammogram and breast MRI. [facility], , 02/18/2024 10:59 AM. Electronically signed and approved by: Alonzo Merrill DO
== END | disposition home or self-care (01) ==
LOC: RADMAMWWP 07:16
PROVIDERS: ATTEND Obstetrics & Gynecology
DX: Z12.31 Encounter for screening mammogram for malignant neoplasm of breast
CPT/HCPCS: 77063; 77067